=== PATIENT | male | born 1960 | race Caucasian/White ===

== ENCOUNTER 2017-11-17 17:14 | Emergency (ER) | END 2017-11-17 22:50 | disposition home or self-care (01) ==

== ENCOUNTER 2017-12-28 10:46 | Emergency (ER) | END 2017-12-28 13:11 | disposition home or self-care (01) ==

== ENCOUNTER 2018-08-28 10:13 | Inpatient (IN) | END 2018-09-04 20:20 | disposition home health service (06) | DRG 494 ==

== ENCOUNTER 2019-01-25 07:39 | Emergency (ER) | payer MEDICARE, OTHER ==
[~2019-01-25] VITALS: Wt 116.8 kg
[~2019-01-25 07:39] MED LIST: BLVX50T PO; LISI-313 PO; MIRT30TA5 PO; NIAC500T92 PO; RISP3TAB3 PO
[2019-01-25 07:42] VITALS: BP 150/80; PULSE 99; RESP 18
--- NOTE | 2019-01-25 09:27 | ERD ---
ER Documentation Chief Complaint Chief Complaint cough x 3 days HPI 58-year-old male, with multiple medical problems including schizophrenia and asthma, presents the emergency department, complaining of cough, productive, worse at night, associated with subjective fever, sore throat and general malaise. The symptoms started 3 days ago. The patient denies chest pain, no shortness of breath. ROS All systems reviewed and are negative except as per history of present illness. Medications Home Meds Active Scripts Guaifenesin/Dextromethorphan* (Guaifenesin* DM) 1 Each Tablet, 1 TAB PO Q12 for 5 Days, #10 TAB.SA Prov:BROCK DAVID MD 01/25/19 Inhaler, Assist Devices (Compact Space Chamber) 1 Each Spacer, EACH MC, #1 Prov:BROCK DAVID MD 01/25/19 Albuterol Sulfate* (Proair HFA*) 8.5 Gm Hfa.aer.ad, 2 PUFF INH Q4H PRN for WHEEZING AND SOB, #1 INHALER Prov:BROCK DAVID MD 01/25/19 Cetirizine Hcl* (Cetirizine Hcl*) 10 Mg Tablet, 10 MG PO DAILY, #30 TAB Prov:BROCK DAVID MD 01/25/19 Reported Medications Fluvoxamine Maleate* (Luvox*) 50 Mg Tab, 50 MG PO BID, TAB 08/28/18 Risperidone* (Risperidone*) 3 Mg Tablet, 3 MG PO BID, TAB 08/28/18 Mirtazapine* (Mirtazapine*) 30 Mg Tablet, 45 MG PO HS, TAB 08/28/18 Niacin (Niacin* ER) 500 Mg Tab.er.24h, 500 MG PO DAILY, TAB.SA 08/28/18 Lisinopril* (Lisinopril*) 5 Mg Tablet, 5 MG PO DAILY, #30 TAB 08/28/18 Allergies Allergies: Coded Allergies: No Known Allergy (Unverified , 01/25/19) PMhx/Soc History of Surgery: Yes (right leg sx d/t fx, brain sx , . neck sx 03/20) Anesthesia Reaction: No Hx Neurological Disorder: No Hx Respiratory Disorders: Yes (asthma, sleep apnea ) Hx Cardiac Disorders: Yes (htn, high cholesterol ) Hx Psychiatric Problems: Yes (OCD, schizophrenia ) Hx Miscellaneous Medical Probl: Yes (Former smoker. ) Hx Alcohol Use: No Hx Substance Use: No Hx Tobacco Use: Yes Smoking Status: Never smoker FmHx Family History: diabetes; No coronary disease Physical Exam Vitals Vital Signs Date Temp Pulse Resp B/P (MAP) Pulse Ox O2 O2 Flow FiO2 Time Delivery Rate 01/25/19 98.9 99 18 150/80 99 07:42 (103) Physical Exam Patient alert, oriented, vital signs stable. HEAD: Normocephalic, atraumatic. EYES: PERRLA, EOMI, Sclera and conjunctiva appear normal. NOSE: Clear and patent nostrils. EARS: Canals clear, tympanic membranes WNL. MOUTH: normal lips and tongue, no oral lesions. THROAT: Normal oropharynx, no tonsillar exudates. NECK: Supple, No lymphadenopathy. Full ROM without pain or tenderness. HEART: RRR, no rubs, murmurs, clicks or gallops. LUNGS: Diffuse rhonchi to auscultation. ABDOMEN: Soft, non-tender without masses or hepatosplenomegaly. EXTREMITIES: No edema bilaterally. BACK: Full ROM, no deformity, normal back exam NEURO: Cranial nerves grossly intact, no motor or sensory deficit SKIN: No rashes, no petechia. Procedures/MDM Differential diagnosis include but not limited to: Respiratory infection bacterial/viral/fungal. Asthma, COPD, pneumonitis, allergies, GERD. Less cardiac related, aspiration pneumonia, malignancy. Physical examination and clinical presentation consistent most likely with noninfectious cough. During the ED course the patient remained stable, no new complaints. Treatment options and clinical impression discussed with patient who agrees with management. The patient is stable to be treated outpatient and will be discharged home. Some side effects of prescribed medications (headache, rash, nausea, vomiting, diarrhea, interactions with other medications) were reviewed. The patient was informed that the evaluation in the emergency department has been done to rule out an acute emergency, therefore, chronic conditions like malignancy or other diseases have not been evaluated; therefore, the patient was instructed to follow up with the primary care provider in the next 48h. If symptoms persist, worsen or new symptoms develop, then patient should return to the ED immediately. Disclaimer: Inadvertent spelling and grammatical errors are likely due to EHR/dictation software use and do not reflect on the overall quality of patient care. Also, please note that the electronic time recorded on this note does not necessarily reflect the actual time of the patient encounter. Departure Diagnosis: Primary Impression: Cough Additional Impression: Upper respiratory infection Condition: Stable Additional Instructions: Thank you very much for allowing us to participate in your care. Your health and safety is our top priority at [facility]. Call your primary care doctor TOMORROW for an appointment during the next 2-4 days and bring all the information and medications prescribed. Have prescriptions filled and follow precisely the directions on the label. If the symptoms get worse and your provider is unavailable, return to the Emergency Department immediately. BROCK DAVID MD Jan 25, 2019 09:27
[2019-01-25] MEDS ORDERED: INHA-3 MC (09:34)
[2019-01-25] MEDS ORDERED: GUAI-158 PO (09:34)
[2019-01-25] MEDS ORDERED: CETI10TA19 PO (09:34)
[2019-01-25] MEDS ORDERED: ALBU8.5H8 INH (09:34)
== END 2019-01-25 09:40 | disposition home or self-care (01) ==
LOC: FTE 07:39
DX: J06.9 Acute upper respiratory infection, unspecified (principal); J45.909 Unspecified asthma, uncomplicated; I10 Essential (primary) hypertension
CPT/HCPCS: 99283